=== PATIENT | male | born 2000 | race African-American/Black ===

== ENCOUNTER 2022-05-23 15:05 | Emergency (ER) | payer OTHER, SELFPAY ==
[2022-05-23 15:18] VITALS: BP 124/78; PULSE 76; RESP 18; TEMP 36.5; O2SAT 100
--- NOTE | 2022-05-23 15:36 | ED.EYEPROB ---
HPI - Eye Problem General Chief complaint: Eye Problems Stated complaint: Lt Eye Irritation Time Seen by Provider: 05/23/22 15:20 Source: patient, RN notes reviewed and old records reviewed Mode of arrival: ambulatory Limitations: no limitations History of Present Illness HPI Narrative: 21 year old male presents to [facility] care with complaints of left eye irritation while at work today. Patient reports that he has irritated feeling in left eye with increased tearing, redness noted to left eye eye. Patient denies any trauma to his left eye or any known foreign object to his left eye. Patient denies any visual disturbance, visual acuity 20/40 left eye and 20/20 right eye without corrective lenses.Patient reports that he had eye examine in march or April of this year. MD chief complaint: other (left eye irritation) Onset (ago): day(s) (today while at work) Eye Symptoms: burning and redness Severity scale (1-10): 3 Treatments Prior to Arrival: OTC eye drops Related Data Allergies Allergy/AdvReac Type Severity Reaction Status Date / Time No Known Allergies Allergy Verified 05/23/22 15:13 Review of Systems Review of Systems: CONSTITUTIONAL: Denies fever, chills, or sweats. EYES: Denies visual changes,positive for left eye redness, increased tearing and feelings or irritation no discharge denies sharp pain or any trauma to his eyes. ENT: Denies rhinorrhea, congestion, sore throat, or otalgia. CARDIOVASCULAR: Denies chest pain, palpitations, or edema. RESPIRATORY: Denies cough or dyspnea. GASTROINTESTINAL: Denies abdominal pain, nausea, vomiting, or diarrhea. GENITOURINARY: Denies dysuria or hematuria. SKIN: Denies rash or itching. MUSCULOSKELETAL: Denies back pain, joint pain, or myalgia. NEUROLOGIC: Denies headache, numbness, or weakness. PSYCHIATRIC: Denies anxiety or depression. All systems reviewed & are unremarkable except as noted in HPI and below PMFSH Past Medical History Medical History (Updated 05/26/22 @ 20:49 by Judy Sheffield NP) Asthma Bronchitis Family History Family History (Updated 05/26/22 @ 20:49 by Judy Sheffield NP) Other Diabetes mellitus Hypertension Social History Social History (Updated 05/26/22 @ 20:50 by Judy Sheffield NP) Smoking status: Unknown if ever smoked Alcohol intake: unknown Substance use type: does not use Gender identity (if verbalized by the patient): Male Comments At time of signature, agree with nursing past medical, surgical, social and family history. There is no relevant family history pertinent to the presenting complaint Exam Narrative: GENERAL: Well-appearing, well-nourished, and in no acute distress. HEAD: Normocephalic, atraumatic. EYES: PERRLA and EOMI. left eye irritation with redness to sclera and conjunctiva, increased watering, ENT: Nares clear, no rhinorrhea or epistaxis. Mucous membranes moist. NECK: Supple.no lymphadenopathy CHEST: Clear to auscultation. No respiratory distress.SAO2 100% on room air HEART: Regular rate and rhythm. No murmur heard. Normal peripheral pulses. ABDOMEN: Soft, nontender, nondistended, normal active bowel sounds. EXTREMITIES: Normal range of motion. No edema. SKIN: Warm, dry, no rash. NEURO: No focal deficits. Alert and oriented x3. Course Course Level of Care: Express Care Visit Vital Signs Vital signs: Vital Signs Temperature 36.5 C 05/23/22 15:18 Pulse Rate 76 05/23/22 15:18 Respiratory Rate 18 05/23/22 15:18 Blood Pressure 124/78 05/23/22 15:18 Pulse Oximetry 100 05/23/22 15:18 Oxygen Delivery Room Air 05/23/22 15:18 Temperature 36.5 C 05/23/22 15:18 Pulse Rate 76 05/23/22 15:18 Respiratory Rate 18 05/23/22 15:18 Blood Pressure 124/78 05/23/22 15:18 Pulse Oximetry 100 05/23/22 15:18 Oxygen Delivery Room Air 05/23/22 15:18 Procedures FB Removal Eye Foreign Body #1: Foreign Body Removal Date: 05/23/22 Foreign Body Removal Time: 15:30
== END 2022-05-23 16:08 | disposition home or self-care (01) ==
PROVIDERS: Emergency Provider Registered Nurse
DX: H10.9 Unspecified conjunctivitis (principal)
CPT/HCPCS: 99213; A9270; G0463